=== PATIENT | female | born 1950 | race Caucasian/White ===

== ENCOUNTER 2018-11-21 15:51 | Observation (INO) | payer MEDICARE, OTHER ==
--- NOTE | 2018-11-21 15:58 | PDOC ---
Rapid Medical Evaluation Time Seen by Provider: 11/21/18 15:57 Medical Evaluation: Allergies Allergy/AdvReac Type Severity Reaction Status Date / Time No Known Allergies Allergy Verified 10/01/12 12:55 11/21/18 15:57 I have performed a brief in-person evaluation of this patient. The patient presents with a chief complaint of: CP/SOB/palpitations today. H/o HTN, s/p stress test 1018 that was negative per pt. No recent travel Pertinent physical exam findings: Jennifer uncomfortable at triage and mildly tachy, c/o chest pain I have ordered the following:ekg, cxr, labs The patient will proceed to the ED for further evaluation. Discharge Disposition - Diagnosis Chest pain Qualifiers: Chest pain type: unspecified Qualified Code(s): R07.9 - Chest pain, unspecified - Referrals Referrals: Muriel Bee MD [Primary Care Provider] - - Patient Instructions - Post Discharge Activity
--- NOTE | 2018-11-21 16:14 | PDOC ---
History of Present Illness - General Chief Complaint: Chest Pain Stated Complaint: CHEST PAIN Time Seen by Provider: 11/21/18 15:57 History Source: Patient, Family - History of Present Illness Initial Comments: 11/21/18 16:32 Pt is a 68yo F with PMH of HTN presenting to ED with complaints of chest pain that started at 1.5 hours ago. Pt said she was sitting down when she broke out into a sweat and developed substernal chest pain that radiated to the back. She also endorses SOB and palpitations. She checked her bp at home and stated it was 196/102. Denies lightheadedness, syncope, cough, pain with inspiration, swelling/pain in the legs, recent travel, recent surgeries, history of blood clots, n/v/d, fevers, chills, headache, trauma. She went to her PMD last week and states her tests were "good." PMD: Karis PMH: see hpi PSH: cholecystectomy, c section Meds: atenolol Allergies: nkda Social: denies Past History - Past Medical History Allergies/Adverse Reactions: Allergies Allergy/AdvReac Type Severity Reaction Status Date / Time No Known Allergies Allergy Verified 11/21/18 16:00 Home Medications: Ambulatory Orders Atenolol [Tenormin -] 50 mg PO DAILY 10/01/12 COPD: No HTN: Yes - Surgical History Cholecystectomy: Yes - Suicide/Smoking/Psychosocial Hx Smoking Status: No Smoking History: Never smoked Have you smoked in the past 12 months: No Number of Cigarettes Smoked Daily: 0 Hx Alcohol Use: No Drug/Substance Use Hx: No Substance Use Type: None Hx Substance Use Treatment: No Review of Systems - Review of Systems Constitutional: No: Chills, Fever, Night Sweats HEENTM: No: Symptoms Reported Respiratory: Yes: Shortness of Breath. No: Cough, Orthopnea, SOB with Exertion , SOB at Rest, Hemoptysis Cardiac (ROS): Yes: Chest Pain, Palpitations, Chest Tightness. No: Lightheadedness, Syncope ABD/GI: No: Constipated, Diarrhea, Nausea, Vomiting, Abdominal cramping : No: Symptoms Reported Musculoskeletal: Yes: Back Pain. No: Muscle Pain, Neck Pain Integumentary: No: Symptoms Reported Neurological: No: Headache, Numbness, Tingling *Physical Exam - Vital Signs Last Vital Signs Temp Pulse Resp BP Pulse Ox 103 H 20 145/71 100 11/21/18 15:58 11/21/18 15:58 11/21/18 15:58 11/21/18 15:58 - Physical Exam General Appearance: Yes: Nourished, Appropriately Dressed. No: Apparent Distress HEENT: positive: EOMI, ROYER, Normal ENT Inspection Neck: positive: Trachea midline, Supple. negative: Lymphadenopathy (R), Lymphadenopathy (L) Respiratory/Chest: positive: Lungs Clear, Normal Breath Sounds. negative: Crackles, Rales, Rhonchi, Stridor Cardiovascular: positive: Regular Rhythm, Regular Rate, S1, S2. negative: Edema , JVD Vascular Pulses: Carotid (R): 2+, Carotid (L): 2+, Dorsalis-Pedis (R): 2+, Doralis-Pedis (L): 2+ Gastrointestinal/Abdominal: positive: Normal Bowel Sounds, Soft. negative: Pulsatile Mass, Distended, Guarding, Rebound, Tenderness Musculoskeletal: negative: CVA Tenderness Extremity: positive: Normal Capillary Refill. negative: Coldness, Cyanosis, Pedal Edema, Swelling, Calf Tenderness Integumentary: positive: Normal Color, Dry, Warm Neurologic: positive: territory representative II-XII NML intact, Fully Oriented, Alert, Normal Mood/ Affect, Normal Response, Motor Strength 5/5 Moderate Sedation - Procedure Monitoring Vital Signs: Procedure Monitoring Vital Signs Temperature Pulse Rate 103 H 11/21/18 15:58 Respiratory Rate 20 11/21/18 15:58 Blood Pressure 145/71 11/21/18 15:58 O2 Sat by Pulse Oximetry (%) 100 11/21/18 15:58 Heart Score/ECG Review - History History: Highly suspicious - Electrocardiogram EKG: Non specific repolarization disturbance - Age Age: >/= 65 - Risk Factors Risk Factors Heart Score: Yes Hx Hypertension Based on the list above the patient has:: 1-2 risk factors - Troponin Troponin: 1-3x normal limit - Score Heart Score - Total: 7 - Waterman Waterman: Normal ED Treatment Course - LABORATORY CBC & Chemistry Diagram: 11/21/18 16:30 11/21/18 16:30 Medical Decision Making - Medical Decision Making 11/21/18 16:35 Pt is a 68yo F with PMH of HTN presenting to ED with complaints of chest pain that started at 1.5 hours ago. Pt said she was sitting down when she broke out into a sweat and developed substernal chest pain that radiated to the back. She also endorses SOB and palpitations. She checked her bp at home and stated it was 196/102. Denies lightheadedness, syncope, cough, pain with inspiration, swelling/pain in the legs, recent travel, recent surgeries, history of blood clots, n/v/d, fevers, chills, headache, trauma. She went to her PMD last week and states her tests were "good." Vitals: HR 103, normotensive, saturating well on RA Ddx includes but not limited to IA, PE, Dissection, PNA, Ptx, CHF, MSK, electrolyte abnormality, pancreatitis -EKG, CXR -CBC, CMP, Cardiac profile, D-dimer -ASA 325 -POCUS 11/21/18 17:45 Pt reports some relief of chest pain after ASA. Will give SL nitro for pain relief. Labs significant for Trop 0.09 and K 3.0. D-dimer negative. Giving 40mEq KCl initial EKG shows sinus tachycardia at 102. No EDI or depressions, no T wave inversion. biatrial enlargement CXR: compared to prior 6 hours ago, no signs of congestion or focal consolidations Will admit for NSTEMI. -Per hospitalist team, adding on Mg and P levels. 11/21/18 17:58 -Per Cadiologist Dr. Guthrie covering for Dr. Zhong, Pt does not need anticoagulation or heparin at this time. Will trend troponin. *DC/Admit/Observation/Transfer Diagnosis at time of Disposition: NSTEMI (non-ST elevated myocardial infarction) Chest pain Qualifiers: Chest pain type: unspecified Qualified Code(s): R07.9 - Chest pain, unspecified - Discharge Dispostion Condition at time of disposition: Good Decision to Admit order: Yes - Referrals - Patient Instructions - Post Discharge Activity
--- NOTE | 2018-11-21 16:22 | PDOC ---
Attending Attestation - Medical Decision Making 11/21/18 17:[address] Zhong, litigation examiner jack strip assembler's office, call returned from Dr. Guthrie (covering jack strip assembler); case discussed with resident Dr. Britney Mora. <Shannon Headley - Last Filed: 11/21/18 17:51> - Resident Resident Name: Britney Mora - ED Attending Attestation I have performed the following: I have examined & evaluated the patient, The case was reviewed & discussed with the resident, I agree w/resident's findings & plan - HPI HPI: 11/21/18 16:27 68 YOF with h/o HTN presenting with acute onset of nonradiating substernal chest pain, a/w palpitations, SOB and back pain. PSH: C section, cholecystectomy PMD: Dr Gaona 11/21/18 17:58 - Physicial Exam PE: 11/21/18 17:38 NAD, well appearing, PERRL, EOMI, MMM, nl conjunctiva, anicteric; neck supple. lungs clear, RRR, abdomen soft nontender. RUSSELL x4, no focal neuro deficits. No peripheral edema. normal color for ethnicity, WWP. no calf tenderness. - Medical Decision Making 11/21/18 17:16 DDx chest pain: ACS, coronary vasospasm, NSTEMI, arrhythmia, unstable angina, PE , dissection, PUD, esophageal spasm, GERD, gastritis, costochondritis, pneumonia , pleurisy, pericarditis/myocarditis. dehydration, electrolyte/metabolic derangements. See HPI for details Vital signs reviewed, +mild tachycardia, HD appropriate Prior notes reviewed, including admissions, discharges and consultations. laboratory results and imaging reviewed, basic labs and lytes notable for Positive troponin to 0.09, will trend, non ischemic sinus EKG neg Dimer, so less likely PE/dissection potassium mildly low, repleted CXR_unremarkable EKG normal sinus rhythm, no interval abnormalities, narrow QRS, ST and T wave segments and morphology normal. ED course: ASA 325mg x1, +chest pain 7/10. trop elevated. pain control with nitro PRN bedside echo reassuring, with normal EF on gross visualization, no pericardial effusion, RV<LV, normal aortic root <4cm at sinus of valsalva cards cs to Dr Zhong group, hold heparin for now, trend trops admit for NSTEMI, tele monitoring, r/o ACS and serial trop/ekg, due for repeat stress test, full echo, cards cs. 11/21/18 18:10 11/21/18 18:11 <Radha Mendoza - Last Filed: 11/21/18 18:12> Heart Score/ECG Review - ECG Impressions Normal ECG: Yes Comment:: 11/21/18 17:45 EKG normal sinus rhythm, no interval abnormalities, narrow QRS, ST and T wave segments and morphology normal. <Radha Mendoza - Last Filed: 11/21/18 18:12> Procedures - Bedside Ultrasound Bedside Ultrasound: Cardiac Remarks: 11/21/18 17:37 POCUS echo performed, indication includes chest pain/dyspnea. views obtained ( PSLA, PSS, A4, SX). Findings include normal EF on visual estimation, no pericardial effusion. Normal aortic root <4cm. RV<LV. Impression: no acute findings <Radha Mendoza - Last Filed: 11/21/18 18:12> Attestations - Attestations 11/21/18 17:53 Documentation prepared by Shannon Headley, acting as certified medical coder for Radha Mendoza MD. <Shannon Headley - Last Filed: 11/21/18 17:51>
[2018-11-21] MEDS ORDERED: ASPIRIN 81 MG CHEWABLE TABLETS PO ONE (16:23)
[2018-11-21] MEDS ORDERED: ASPIRIN 325 MG TABLET ONE (16:38)
[2018-11-21 16:40] LABS: BASO % 0.7 % (0-2.0); EOS % 1.2 % (0-4.5); HEMOGLOBIN 12.9 GM/dL (10.7-15.3); LYMPH % 41.1 % (8-40); MCH 29.8 pg (25.7-33.7); MCHC 34.1 g/dl (32.0-36.0); MEAN CELL VOLUME 87.5 fl (80-96); MEAN PLT VOLUME 11.7 fl (7.5-11.1); MONO % 7.8 % (3.8-10.2); NEUT % 49.2 % (42.8-82.8); PLATELET COUNT 145 K/MM3 (134-434); RBC 4.34 M/mm3 (3.60-5.2); RDW 14.3 % (11.6-15.6); WHITE BLOOD COUNT 6.7 K/mm3 (4.0-10.0)
[2018-11-21 16:59] LABS: INR 1.06 (0.83-1.09); PROTHROMBIN TIME (PATIENT) 12.5 SEC (9.7-13.0)
[2018-11-21 17:02] LABS: ACTIVATED PTT 29.6 SECONDS (25.2-36.5)
[2018-11-21 17:21] LABS: ALK PHOS 72 U/L (45-117); ANION GAP 13 MMOL/L (8-16); BILIRUBIN,TOTAL 0.2 mg/dL (0.2-1); BLOOD UREA NITROGEN 17 mg/dL (7-18); CALCIUM 9.2 mg/dL (8.5-10.1); CHLORIDE 100 mmol/L (98-107); CO2 25 mmol/L (21-32); CREATININE 0.8 mg/dL (0.55-1.3); GLUCOSE,RANDOM 86 mg/dL (74-106); SGOT/AST 22 U/L (15-37); SGPT/ALT 40 U/L (13-61); SODIUM 138 mmol/L (136-145); TOT PROT 7.9 g/dl (6.4-8.2)
[2018-11-21] MEDS ORDERED: POTASSIUM CHLORIDE ORAL LIQUID 20 MEQ/15 ML PO ONE (17:42)
[2018-11-21] MEDS ORDERED: NITROGLYCERIN SUBLINGUAL 1/150 0.4 MG TAB SL ONE (17:45)
[2018-11-21] MEDS ORDERED: NITROGLYCERIN SUBLINGUAL 1/150 0.4 MG TAB ONE (17:51)
[2018-11-21] MEDS ORDERED: POTASSIUM CHLORIDE TABS 20 MEQ TABLET.ER (FP) PO ONE (17:51)
[2018-11-21 18:09] LABS: MAGNESIUM 1.9 mg/dL (1.8-2.4); PHOSPHOROUS 2.6 mg/dL (2.5-4.9)
--- NOTE | 2018-11-21 18:21 | HP ---
CHIEF COMPLAINT: " Chest pain " PCP: Dr. Dyson HISTORY OF PRESENT ILLNESS: Patient is a 68 year old female presented to the ED with the chief complaint of " chest pain" that started 2 hours prior to arrival. As per the patient, she was apparently well until this afternoon, was watching TV, then she suddenly started having chest pain, located centrally, describes as squeezing in nature, 3/10 in intensity, non radiating, associated with shortness of breath and palpitations. She felt very weak, tired, checked her BP and it was 196/102 mmHg. Hence came in to the ED for further evaluation and treatment. Denies dizziness, vertigo, headache, abdominal pain. Bowel habit normal. Last BM was today. Bladder habit normal. Sleep/Appetite normal prior to her symptoms. ER course was notable for: (1) Afebrile, BP 140/78 mmHg, Troponin 0.09 (2) EKG: Normal sinus rhythm. No ST or T wave changes. (3) Aspirin 325 mg. Recent Travel: None PAST MEDICAL HISTORY: Hypertension, Pre-diabetic PAST SURGICAL HISTORY: Cholecystectomy 20 yrs ago, C-sections. Social History: Smoking: Denies Alcohol: Denies Drugs: Denies Family History: Non contributory Allergies No Known Allergies Allergy (Verified 11/21/18 16:00) HOME MEDICATIONS: Home Medications Medication Instructions Recorded Atenolol [Tenormin -] 50 mg PO DAILY 10/01/12 REVIEW OF SYSTEMS CONSTITUTIONAL: Absent: fever, chills, diaphoresis, generalized weakness, malaise, loss of appetite, weight change HEENT: Absent: rhinorrhea, nasal congestion, throat pain, throat swelling, difficulty swallowing, mouth swelling, ear pain, eye pain, visual changes CARDIOVASCULAR: Present: chest pain, shortness of breath, palpitations Absent: syncope, irregular heart rate, lightheadedness, peripheral edema RESPIRATORY: Absent: cough, shortness of breath, dyspnea with exertion, orthopnea, wheezing, stridor, hemoptysis GASTROINTESTINAL: Absent: abdominal pain, abdominal distension, nausea, vomiting, diarrhea, constipation, melena, hematochezia GENITOURINARY: Absent: dysuria, frequency, urgency, hesitancy, hematuria, flank pain, genital pain MUSCULOSKELETAL: Absent: myalgia, arthralgia, joint swelling, back pain, neck pain SKIN: Absent: rash, itching, pallor HEMATOLOGIC/IMMUNOLOGIC: Absent: easy bleeding, easy bruising, lymphadenopathy, frequent infections ENDOCRINE: Absent: unexplained weight gain, unexplained weight loss, heat intolerance, cold intolerance NEUROLOGIC: Absent: headache, focal weakness or paresthesias, dizziness, unsteady gait, seizure, mental status changes, bladder or bowel incontinence PSYCHIATRIC: Absent: anxiety, depression, suicidal or homicidal ideation, hallucinations. PHYSICAL EXAMINATION Vital Signs - 24 hr 11/21/18 11/21/18 11/21/18 15:58 16:21 17:48 Temperature 98.4 F Pulse Rate 103 H 94 H Pulse Rate [ 72 Left Apical] Respiratory 20 16 Rate Blood Pressure 145/71 Blood Pressure 128/83 [Right Arm] O2 Sat by Pulse 100 98 99 Oximetry (%) 11/21/18 18:09 Temperature Pulse Rate Pulse Rate [ 82 Left Apical] Respiratory 16 Rate Blood Pressure Blood Pressure 112/71 [Right Arm] O2 Sat by Pulse 99 Oximetry (%) GENERAL: Middle aged female, sitting in bed comfortably, Awake, alert, and fully oriented, in no acute distress. EYES: EOM intact, no pallor or icterus. NECK: Supple, No JVD, no carotid bruit. LUNGS:B/L lungs clear, no added sounds. HEART: Regular rate and rhythm, normal S1 and S2 without murmu. ABDOMEN: Soft, nontender, no organomegaly, BS + UPPER EXTREMITIES: 2+ pulses, warm, well-perfused. No cyanosis. No clubbing. No peripheral edema. LOWER EXTREMITIES: 2+ pulses, warm, well-perfused. No calf tenderness. No peripheral edema. NEUROLOGICAL: No facial droop, power 5/5 in all extremities, sensations intact. Normal speech. Normal gait. PSYCHIATRIC: Cooperative. Good eye contact. Appropriate mood and affect. SKIN: Warm, dry, normal turgor, no rashes or lesions noted, normal capillary refill. Laboratory Results - last 24 hr 11/21/18 11/21/18 11/21/18 16:30 16:30 16:30 WBC 6.7 RBC 4.34 Hgb 12.9 Hct 38.0 MCV 87.5 MCH 29.8 MCHC 34.1 RDW 14.3 Plt Count 145 D MPV 11.7 H Absolute Neuts (auto) 3.3 Neutrophils % 49.2 Lymphocytes % 41.1 H Monocytes % 7.8 Eosinophils % 1.2 Basophils % 0.7 Nucleated RBC % 0 PT with INR 12.50 INR 1.06 PTT (Actin FS) 29.6 D-Dimer Sodium 138 Potassium 3.0 L Chloride 100 Carbon Dioxide 25 Anion Gap 13 BUN 17 Creatinine 0.8 Creat Clearance w eGFR > 60 Random Glucose 86 Calcium 9.2 Phosphorus 2.6 Magnesium 1.9 Total Bilirubin 0.2 AST 22 ALT 40 Alkaline Phosphatase 72 Creatine Kinase 83 Troponin I 0.09 H Total Protein 7.9 Albumin 4.0 11/21/18 16:30 WBC RBC Hgb Hct MCV MCH MCHC RDW Plt Count MPV Absolute Neuts (auto) Neutrophils % Lymphocytes % Monocytes % Eosinophils % Basophils % Nucleated RBC % PT with INR INR PTT (Actin FS) D-Dimer 285 Sodium Potassium Chloride Carbon Dioxide Anion Gap BUN Creatinine Creat Clearance w eGFR Random Glucose Calcium Phosphorus Magnesium Total Bilirubin AST ALT Alkaline Phosphatase Creatine Kinase Troponin I Total Protein Albumin ASSESSMENT/PLAN: Patient is a 68 year old female with past medical history of hypertension and prediabetic presented to the ED with the chief complaint of " chest pain" that started 2 hours prior to arrival. # Chest pain r/o ACS c/o chest pain, located centrally, associated with shortness of breath and palpitations. Troponins 0.09, BP at home 190/106 mmHg Chest pain could be a demand ischemia from HTN. EKG: Normal sinus rhythm, no ST or T wave changes Received Aspirin 325 mg in the ED. Admit to Tele/observation. Continuous cardiac monitoring. Trend troponins. Trop 0.09 --> trops at 10:30 pm. Continue aspirin 81 mg. Cardiology consult requested. As per ED resident, Dr. Guthrie recommends trending trops, if it is rising, then start the patient on Heparin drip Serial EKGs ECHO, Lipid profile and HbA1c. # Hypokalemia K-3, Mg and phos pending K-dur 40 mg PO and IV KCL 10 mg x 2. Repeat K in AM # Hypertension At home, her BP was 190/106 mmHg before arrival to the ED, however it normalized without any medication. Continue to monitor. Continue Atenolol 50 mg PO daily # FEN Not on IV fluids Electrolytes WNL Sodium controlled diet # Prophylaxis For DVT: On Heparin 5000 IU sq TID For GI: Not indicated # Code Status: Full Code # Dispo: Admit to tele/Obs. Duration of stay likely 1-2 days. Illness, Investigation and plan of care explained to the patient. She verbalized understanding. Case discussed with Dr. Paul.
[2018-11-21] MEDS ORDERED: KCL 10 MEQ IVPB 20 MEQ/200 ML INFUS.BAG IVPB ONE (18:46)
[2018-11-21] MEDS: KCL 10 MEQ IVPB 10 MEQ/100 ML INFUS.BAG IVPB SCH ×2 (18:56→22:24)
[2018-11-21] MEDS ORDERED: HEPARIN NA (PORCINE) 5,000 UNITS/ML 1ML VIAL SQ SCH (22:00)
--- NOTE | 2018-11-21 23:05 | PN ---
Teaching Attending Note Name of Resident: Jo-Ann Mosher ATTENDING PHYSICIAN STATEMENT I saw and evaluated the patient. I reviewed the resident's note and discussed the case with the resident. I agree with the resident's findings and plan as documented. SUBJECTIVE: OBJECTIVE: ASSESSMENT AND PLAN: this is a 68 y/o female patient presented to the hospital with chest pain, the patient stated that the pain is retrosternal in nature the patent stated that she is having pain at this time - she denied that the pain with inspiration, denied any palpitations, SOB, admit to the hospital to r/o ACS patient was found to have elevated troponin cardiology plan load the patient with aspirin repeat troponin q6hrs repeat ECG q6 hrs c/w home medication f/u with cardiology start the patient on heparin drip if the troponin are rising will load patient with clopidogrel 300mg if the troponin are rising if the patient keeps on having chest pain will consider transferring patient for UA nitroglyerine prn c/w beta-blockers c/w heparin sub-q echocardiogram stress test if the troponin trending down
[2018-11-21 23:31] VITALS: BMI 26.6
--- NOTE | 2018-11-22 03:11 | PN ---
Progress Note (short form) - Note Progress Note: Patient is comfortable with no further chest pain. No nausea or vomiting. Vital Signs Temperature 98.3 F 11/22/18 01:21 Pulse Rate 64 11/22/18 01:21 Respiratory Rate 18 11/22/18 01:21 Blood Pressure 133/71 11/22/18 01:21 O2 Sat by Pulse Oximetry (%) 99 11/21/18 21:45 GENERAL: lying in bed comfortably, Awake, alert, and fully oriented, in no acute distress. EYES: EOM intact, no pallor or icterus. NECK: Supple, No JVD, no carotid bruit. LUNGS:B/L lungs clear, no added sounds. HEART: Regular rate and rhythm, normal S1 and S2 without murmu. ABDOMEN: Soft, nontender, no organomegaly, positive for BS EXTREMITIES: 2+ pulses, warm, well-perfused. No cyanosis. No clubbing. No peripheral edema. NEUROLOGICAL: No facial droop, power 5/5 in all extremities, sensations intact. Normal speech. Normal gait. PSYCHIATRIC: Cooperative. Good eye contact. Appropriate mood and affect. SKIN: Warm, dry, normal turgor, no rashes or lesions noted, normal capillary refill. CBCD WBC 6.7 K/mm3 (4.0-10.0) 11/21/18 16:30 RBC 4.34 M/mm3 (3.60-5.2) 11/21/18 16:30 Hgb 12.9 GM/dL (10.7-15.3) 11/21/18 16:30 Hct 38.0 % (32.4-45.2) 11/21/18 16:30 MCV 87.5 fl (80-96) 11/21/18 16:30 MCHC 34.1 g/dl (32.0-36.0) 11/21/18 16:30 RDW 14.3 % (11.6-15.6) 11/21/18 16:30 Plt Count 145 K/MM3 (134-434) D 11/21/18 16:30 MPV 11.7 fl (7.5-11.1) H 11/21/18 16:30 CMP Sodium 138 mmol/L (136-145) 11/21/18 16:30 Potassium 3.0 mmol/L (3.5-5.1) L 11/21/18 16:30 Chloride 100 mmol/L (98-107) 11/21/18 16:30 Carbon Dioxide 25 mmol/L (21-32) 11/21/18 16:30 Anion Gap 13 MMOL/L (8-16) 11/21/18 16:30 BUN 17 mg/dL (7-18) 11/21/18 16:30 Creatinine 0.8 mg/dL (0.55-1.3) 11/21/18 16:30 Creat Clearance w eGFR > 60 (>60) 11/21/18 16:30 Random Glucose 86 mg/dL (74-106) 11/21/18 16:30 Calcium 9.2 mg/dL (8.5-10.1) 11/21/18 16:30 Total Bilirubin 0.2 mg/dL (0.2-1) 11/21/18 16:30 AST 22 U/L (15-37) 11/21/18 16:30 ALT 40 U/L (13-61) 11/21/18 16:30 Alkaline Phosphatase 72 U/L (45-117) 11/21/18 16:30 Total Protein 7.9 g/dl (6.4-8.2) 11/21/18 16:30 Albumin 4.0 g/dl (3.4-5.0) 11/21/18 16:30 CARDIAC ENZYMES Creatine Kinase 78 IU/L (26-192) 11/21/18 22:55 Troponin I 0.43 ng/ml (0.00-0.05) H 11/21/18 22:55 Laboratory Tests 11/21/18 11/21/18 16:30 22:55 Troponin I 0.09 H 0.43 H Current Medications Generic Name Dose Route Start Last Admin Trade Name Freq PRN Reason Stop Dose Admin Aspirin 81 mg 11/22/18 10:00 Ecotrin - PO DAILY [facility] Atenolol 50 mg 11/22/18 10:00 Tenormin - PO DAILY [facility] Heparin Sodium (Porcine) 5,000 unit 11/21/18 22:00 11/21/18 22:25 Heparin - SQ 5,000 unit TID [facility] Administration Home Medications Medication Instructions Recorded Atenolol [Tenormin -] 50 mg PO DAILY 10/01/12 Laboratory Tests 11/21/18 11/21/18 16:30 22:55 Troponin I 0.09 H 0.43 H EKG: Normal sinus rhythm, no ST or T wave changes A/P: Patient is a 68 year old female with PMHx of hypertension , pre-diabetic presented to the ED c/o having chest pain started 2 hours prior to arrival. # Acute chest pain r/o ACS , possible due to demand ischemia from HTN. Dr. Guthrie hand sander on the case. Patient's troponin slight elevation, Serial EKGs, ECHO pending. Lipid profile and HbA1c ,on asa 81mg, will add lovenox 70mg bid since Troponin is rising. # Hypokalemia : will monitor and replete prn, k-dur 40 mg PO and IV KCL 10 mg x 2. repeat potassium. # Hypertension improved. continue Atenolol 50 mg PO daily DVT Px: lovenox full dose Code Status: Full Code Dispo: Admit to tele/Obs. Duration of stay likely 1-2 days. Visit type - Emergency Visit Emergency Visit: Yes ED Registration Date: 11/21/18 Care time: The patient presented to the Emergency Department on the above date and was hospitalized for further evaluation of their emergent condition. - New Patient This patient is new to me today: Yes Date on this admission: 11/22/18 - Critical Care Critical Care patient: No - Discharge Referral Referred to [facility] No
[2018-11-22] MEDS ORDERED: ENOXAPARIN NA (PORCINE) 80 MG/0.8 ML DISP.SYRIN SQ SCH (05:00)
[2018-11-22 07:58] LABS: BASO % 0.5 % (0-2.0); EOS % 1.4 % (0-4.5); HEMATOCRIT 37.4 % (32.4-45.2); HEMOGLOBIN 12.6 GM/dL (10.7-15.3); LYMPH % 50.3 % (8-40); MCH 29.4 pg (25.7-33.7); MCHC 33.6 g/dl (32.0-36.0); MEAN CELL VOLUME 87.6 fl (80-96); MEAN PLT VOLUME 12.5 fl (7.5-11.1); MONO % 8.8 % (3.8-10.2); PLATELET COUNT 133 K/MM3 (134-434); RBC 4.27 M/mm3 (3.60-5.2); RDW 14.3 % (11.6-15.6); WHITE BLOOD COUNT 5.1 K/mm3 (4.0-10.0)
[2018-11-22 08:36] LABS: ANION GAP 7 MMOL/L (8-16); BLOOD UREA NITROGEN 12 mg/dL (7-18); CALCIUM 9.7 mg/dL (8.5-10.1); CHLORIDE 101 mmol/L (98-107); CHOLESTEROL 165 mg/dL (50-200); CO2 29 mmol/L (21-32); CREATININE 0.6 mg/dL (0.55-1.3); GLUCOSE,RANDOM 85 mg/dL (74-106); HDL CHOLESTEROL 64 mg/dL (40-60); POTASSIUM 3.9 mmol/L (3.5-5.1); SODIUM 137 mmol/L (136-145); TRIGLYCERIDES 51 mg/dL (0-150)
--- NOTE | 2018-11-22 10:27 | CON.CARD ---
Consult Consult Specialty:: Cardiology Referred by:: Humberto Reason for Consultation:: chest pain - History of Present Illness Chief Complaint: chest pain History of Present Illness: 68F h/o HTN, prediabetes p/w chest pain for two hours prior to arriving to ED. She felt well during the day, afternoon rpior to admission suddenly had chest pain while watching TV, 3/10 intensity, nonradiating, associated with shortness of breath and palpitations. BP 192/102 per patient when checking at home at the time, she came to the ED for evaluation. BP here was controlled. Had CP again in the afternoon yesterday. Today she felt a minor chest burning,she has been feeling this the last few months. Received asiprin 325 mg, EKG stable from prior. Trop 0.09->0.4->0.13. She was started on lovenox. Currently she denies chest pain, palps, dizziness, lightheadedness, nausea. - History Source History Provided By: Patient - Alcohol/Substance Use Hx Alcohol Use: No - Smoking History Smoking history: Never smoked Have you smoked in the past 12 months: No Aproximately how many cigarettes per day: 0 Home Medications - Allergies Allergies/Adverse Reactions: Allergies Allergy/AdvReac Type Severity Reaction Status Date / Time No Known Allergies Allergy Verified 11/21/18 16:00 - Home Medications Home Medications: Ambulatory Orders Atenolol [Tenormin -] 50 mg PO DAILY 10/01/12 Family Disease History - Family Disease History Family History: Unremarkable Review of Systems - Review of Systems Constitutional: reports: No Symptoms Eyes: reports: No Symptoms HENT: reports: No Symptoms Neck: reports: No Symptoms Cardiovascular: reports: No Symptoms Respiratory: reports: No Symptoms Gastrointestinal: reports: No Symptoms Genitourinary: reports: No Symptoms Musculoskeletal: reports: No Symptoms Integumentary: reports: No Symptoms Neurological: reports: No Symptoms Endocrine: reports: No Symptoms Hematology/Lymphatic: reports: No Symptoms Psychiatric: reports: No Symptoms Vital Signs: Vital Signs Temperature 98 F 11/22/18 05:00 Pulse Rate 71 11/22/18 09:00 Respiratory Rate 18 11/22/18 09:00 Blood Pressure 122/69 11/22/18 09:00 O2 Sat by Pulse Oximetry (%) 99 11/22/18 03:00 Constitutional: Yes: No Distress, Calm Eyes: Yes: Conjunctiva Clear, EOM Intact HENT: Yes: Atraumatic, Normocephalic Neck: Yes: Supple, Trachea Midline Respiratory: Yes: Regular, CTA Bilaterally Gastrointestinal: Yes: Normal Bowel Sounds Cardiovascular: Yes: Regular Rate and Rhythm JVD: No Carotid Bruit: No Heart Sounds: Yes: S1, S2 Musculoskeletal: No: Back Pain Extremities: No: Cold Edema: No Peripheral Pulses WNL: Yes Peripheral Pulses: 2+ Left Doralis Pedis, 2+ Right Dorsalis Pedis Neurological: Yes: Alert, Oriented Psychiatric: Yes: Alert, Oriented - Other Data Labs, Other Data: CBC, BMP 11/22/18 06:38 11/22/18 06:38 INR, PTT INR 1.06 (0.83-1.09) 11/21/18 16:30 Troponin, BNP 11/21/18 11/21/18 11/22/18 16:30 22:55 06:38 Troponin I 0.09 H 0.43 H 0.13 H Troponin, BNP 11/21/18 11/21/18 11/22/18 16:30 22:55 06:38 Troponin I 0.09 H 0.43 H 0.13 H Assessment/Plan EKG: sinus, nl intervals, no ST changes CXR: no acute process chest pain, elevated troponin - flat trend, indeterminate range, likely demand ischemia in setting of elevated BP - lovenox dc'ed, less likely ACS - echo ordered - stress test to evaluate for underlying ischemia - monitor on tele HTN - stable here on atenolol, reports high BPs at home and recent trial of amlodipine with leg swelling - continue atenolol, monitor Prediabetes - manage per primary
[2018-11-22] MEDS: ATENOLOL 50 MG TABLET (FP) PO SCH (11:55)
[2018-11-22] MEDS: ASPIRIN COATED 81 MG TABLET.EC PO SCH (11:55)
[2018-11-23] MEDS: ATENOLOL 50 MG TABLET (FP) PO SCH (09:57)
[2018-11-23] MEDS: ASPIRIN COATED 81 MG TABLET.EC PO SCH (09:57)
--- NOTE | 2018-11-23 11:02 | PN ---
Progress Note (short form) - Note Progress Note: cc: chest pain s: occasional chest burning lasting a few minutes, had an episode this morning few seconds and a couple yesterday, different from chest pain she had when bp elevated.no shortness of breath, palps, dizziness, lightheadedness Vital Signs Period Temp Pulse Resp BP Sys/Chew Pulse Ox Last 24 Hr 97.3 F-98.2 F 63-72 17-18 115-127/71-76 100-100 Constitutional: Yes: No Distress, Calm Eyes: Yes: Conjunctiva Clear, EOM Intact HENT: Yes: Atraumatic, Normocephalic Neck: Yes: Supple, Trachea Midline Respiratory: Yes: Regular, CTA Bilaterally Gastrointestinal: Yes: Normal Bowel Sounds Cardiovascular: Yes: Regular Rate and Rhythm JVD: No Carotid Bruit: No Heart Sounds: Yes: S1, S2 Musculoskeletal: No: Back Pain Extremities: No: Cold Edema: No Peripheral Pulses WNL: Yes Peripheral Pulses: 2+ Left Doralis Pedis, 2+ Right Dorsalis Pedis Neurological: Yes: Alert, Oriented Psychiatric: Yes: Alert, Oriented Assessment/Plan EKG: sinus, nl intervals, no ST changes CXR: no acute process tele: sinus rhythm chest pain, elevated troponin - flat trend, indeterminate range, likely demand ischemia in setting of elevated BP - occasional chest burning while here, atypical, lasting seconds - echo ordered - stress test to evaluate for underlying ischemia - monitor on tele, no events HTN - stable here on atenolol, reports high BPs at home and recent trial of amlodipine with leg swelling - continue atenolol, monitor Prediabetes - manage per primary
--- NOTE | 2018-11-23 15:32 | PN ---
Progress Note, Physician History of Present Illness: chest pain - Current Medication List Current Medications: Active Medications Aspirin (Ecotrin -) 81 mg PO DAILY [facility] Last Admin: 11/23/18 09:57 Dose: 81 mg Atenolol (Tenormin -) 50 mg PO DAILY [facility] Last Admin: 11/23/18 09:57 Dose: 50 mg - Objective Vital Signs: Vital Signs Temperature 98.1 F 11/23/18 14:06 Pulse Rate 62 11/23/18 14:06 Respiratory Rate 18 11/23/18 06:00 Blood Pressure 126/79 11/23/18 14:06 O2 Sat by Pulse Oximetry (%) 100 11/23/18 05:00 Constitutional: Yes: Well Nourished, No Distress, Calm Eyes: Yes: WNL, Conjunctiva Clear, EOM Intact HENT: Yes: WNL, Atraumatic, Normocephalic Neck: Yes: WNL, Supple, Trachea Midline Cardiovascular: Yes: WNL, Regular Rate and Rhythm, S1, S2 Respiratory: Yes: WNL, Regular, CTA Bilaterally Gastrointestinal: Yes: WNL, Normal Bowel Sounds, Soft Musculoskeletal: Yes: WNL Extremities: Yes: WNL Edema: No Integumentary: Yes: WNL Neurological: Yes: WNL, Alert, Oriented ...Motor Strength: WNL Psychiatric: Yes: WNL, Alert, Oriented Labs: CBC, BMP 11/22/18 06:38 11/22/18 06:38 INR, PTT INR 1.06 (0.83-1.09) 11/21/18 16:30 Problem List - Problems (1) NSTEMI (non-ST elevated myocardial infarction) Code(s): I21.4 - NON-ST ELEVATION (NSTEMI) MYOCARDIAL INFARCTION (2) HTN (hypertension), benign Code(s): I10 - ESSENTIAL (PRIMARY) HYPERTENSION Assessment/Plan this is a 68 y/o female patient presented to the hospital with chest pain, the patient stated that the pain is retrosternal in nature the patent stated that she is having pain at this time - she denied that the pain with inspiration, denied any palpitations, SOB, admit to the hospital to r/o ACS patient was found to have elevated troponin cardiology plan load the patient with aspirin troponin are trending down repeat ECG only if active chest pain repeat troponin with active chest pain c/w home medication alexandra nuclear stress test if the patient keeps on having chest pain will consider transferring patient for UA nitroglyerine prn c/w beta-blockers c/w heparin sub-q f/u with echocardiogram stress test if the troponin trending down
--- NOTE | 2018-11-23 19:10 | EKG ---
Test Reason : Blood Pressure : / mmHG Vent. Rate : 067 BPM Atrial Rate : 067 BPM P-R Int : 222 ms QRS Dur : 092 ms QT Int : 384 ms P-R-T Axes : 064 024 024 degrees QTc Int : 405 ms SINUS RHYTHM WITH 1ST DEGREE A-V BLOCK OTHERWISE NORMAL ECG WHEN COMPARED WITH ECG OF 21-NOV-2018 23:00, NO SIGNIFICANT CHANGE WAS FOUND Confirmed by REBECCA ALEXANDER, MARYSOL ([id number]) on 11/23/2018 7:09:40 PM Referred By: Lindsay ANAYA Confirmed By:MARYSOL FERNANDEZ MD
--- NOTE | 2018-11-23 19:12 | EKG ---
Test Reason : Blood Pressure : / mmHG Vent. Rate : 063 BPM Atrial Rate : 063 BPM P-R Int : 208 ms QRS Dur : 092 ms QT Int : 392 ms P-R-T Axes : 050 018 029 degrees QTc Int : 401 ms NORMAL SINUS RHYTHM NORMAL ECG WHEN COMPARED WITH ECG OF 21-NOV-2018 17:20, NO SIGNIFICANT CHANGE WAS FOUND Confirmed by MARYSOL FERNANDEZ MD ([id number]) on 11/23/2018 7:12:29 PM Referred By: Confirmed By:MARYSOL FERNANDEZ MD
--- NOTE | 2018-11-23 19:33 | EKG ---
Test Reason : Blood Pressure : / mmHG Vent. Rate : 075 BPM Atrial Rate : 075 BPM P-R Int : 180 ms QRS Dur : 092 ms QT Int : 388 ms P-R-T Axes : 058 005 021 degrees QTc Int : 433 ms NORMAL SINUS RHYTHM POSSIBLE LEFT ATRIAL ENLARGEMENT LEFT VENTRICULAR HYPERTROPHY ABNORMAL ECG WHEN COMPARED WITH ECG OF 21-NOV-2018 15:55, NO SIGNIFICANT CHANGE WAS FOUND Confirmed by MARYSOL FERNANDEZ MD ([id number]) on 11/23/2018 7:32:47 PM Referred By: Confirmed By:MARYSOL FERNANDEZ MD
--- NOTE | 2018-11-23 19:34 | EKG ---
Test Reason : Blood Pressure : / mmHG Vent. Rate : 102 BPM Atrial Rate : 102 BPM P-R Int : 176 ms QRS Dur : 092 ms QT Int : 368 ms P-R-T Axes : 070 041 055 degrees QTc Int : 479 ms SINUS TACHYCARDIA BIATRIAL ENLARGEMENT ABNORMAL ECG WHEN COMPARED WITH ECG OF 02-OCT-2012 14:05, T WAVE VARIATION VENT. RATE HAS INCREASED Confirmed by MARYSOL FERNANDEZ MD ([id number]) on 11/23/2018 7:33:47 PM Referred By: Confirmed By:MARYSOL FERNANDEZ MD
--- NOTE | 2018-11-24 08:28 | PN ---
Progress Note, Physician Chief Complaint: Patient denies any chest pain or SOB, schedule for stress test History of Present Illness: 68 yrs old admitted with chest pain in the setting of elevated BP evaluated by Cardiology, flat elevation of trop I , schedule for stress test. - Current Medication List Current Medications: Active Medications Aspirin (Ecotrin -) 81 mg PO DAILY [facility] Last Admin: 11/23/18 09:57 Dose: 81 mg Atenolol (Tenormin -) 50 mg PO DAILY [facility] Last Admin: 11/23/18 09:57 Dose: 50 mg - Objective Vital Signs: Vital Signs Temperature 98.1 F 11/24/18 06:00 Pulse Rate 70 11/24/18 06:00 Respiratory Rate 18 11/24/18 06:00 Blood Pressure 132/74 11/24/18 06:00 O2 Sat by Pulse Oximetry (%) 100 11/24/18 06:00 Constitutional: Yes: Well Nourished, No Distress Eyes: Yes: WNL, Conjunctiva Clear HENT: Yes: Atraumatic, Normocephalic Neck: Yes: Supple, Trachea Midline. No: Decreased ROM, Lymphadenopathy Cardiovascular: Yes: Regular Rate and Rhythm, S1, S2. No: JVD, Gallop, Murmur Respiratory: Yes: Regular, CTA Bilaterally Gastrointestinal: Yes: Normal Bowel Sounds, Soft Musculoskeletal: No: Back Pain, Joint Stiffness, Joint Swelling Extremities: No: Calf Tenderness Edema: No Peripheral Pulses: Left Doralis Pedis: 1+, Right Dorsalis Pedis: 1+ Neurological: Yes: Alert, Oriented ...Motor Strength: WNL, LUE, LLE, RUE Labs: CBC, BMP 11/22/18 06:38 11/22/18 06:38 INR, PTT INR 1.06 (0.83-1.09) 11/21/18 16:30 Problem List - Problems (1) HTN (hypertension), benign Assessment/Plan: Well controlled cont Atenolol and ASA Code(s): I10 - ESSENTIAL (PRIMARY) HYPERTENSION (2) Elevated troponin Assessment/Plan: Mild flat no acute St T changes, evaluated by Cardiology recommended Stress test cont ASA and B Blockers F/u Lipid panel Code(s): R74.8 - ABNORMAL LEVELS OF OTHER SERUM ENZYMES (3) Chest pain Assessment/Plan: Atypical in the setting of High BP needs evaluation for CAD considering high heart score need inpatient stress test F/U stress test. Code(s): R07.9 - CHEST PAIN, UNSPECIFIED Qualifiers: Chest pain type: unspecified Qualified Code(s): R07.9 - Chest pain, unspecified
[2018-11-24] MEDS: ASPIRIN COATED 81 MG TABLET.EC PO SCH (09:34)
[2018-11-24] MEDS: ATENOLOL 50 MG TABLET (FP) PO SCH (09:35)
--- NOTE | 2018-11-24 13:50 | ECHO ---
Name: SULY LIVE Exam:Adult Echocardiogram Study Date: 11/24/2018 08:40 AM Age: 68 yrs Reason For Study: EF WALL MOTION ABNORMALITIES Height: 64 in Weight: 155 lb BSA: 1.8 m2 MMode/2D Measurements & Calculations IVSd: 0.81 cm Ao root diam: 2.5 cm LVIDd: 4.3 cm LA dimension: 4.0 cm LVIDs: 2.8 cm LVPWd: 0.79 cm EDV(Teich): 84.0 ml ESV(Teich): 28.9 ml Doppler Measurements & Calculations MV E max rebel: 58.7 cm/sec Ao V2 max: 132.6 cm/sec MV A max rebel: 81.4 cm/sec Ao max P.0 mmHg MV E/A: 0.72 Ao V2 mean: 96.7 cm/sec MV dec time: 0.27 sec Ao mean P.1 mmHg Ao V2 VTI: 30.7 cm AI P1/2t: 738.0 msec AI max rebel: 354.1 cm/sec LV V1 max P.3 mmHg AI max P.6 mmHg LV V1 mean P.5 mmHg LV V1 max: 90.6 cm/sec AI dec slope: 140.5 cm/sec2 LV V1 mean: 56.0 cm/sec LV V1 VTI: 19.1 cm MR max rebel: 259.3 cm/sec TR max rebel: 173.7 cm/sec MR max P.9 mmHg TR max P.1 mmHg PA V2 max: 107.7 cm/sec PI end-d rebel: 136.4 cm/sec PA max P.6 mmHg Med Peak E' Rebel: 5.7 cm/sec Med E/e': 10.4 Lat Peak E' Rebel: 4.8 cm/sec Lat E/e': 12.3 Procedure A complete two-dimensional transthoracic echocardiogram was performed (2D, M-mode, Doppler and color flow Doppler). Left Ventricle The left ventricle is normal in size. Left ventricular systolic function is normal. Ejection Fraction = 65- 70%. Grade I diastolic dysfunction, (abnormal relaxation pattern). Ratio E/E'= 10. No regional wall m otion abnormalities noted. Right Ventricle The right ventricle is normal size. The right ventricular systolic function is normal. RV systolic TD I is 11 cm/s. Atria The left atrial size is normal. Right atrial size is normal. Mitral Valve The mitral valve is normal in structure and function. There is trace to mild mitral regurgitation. Tricuspid Valve The tricuspid valve is normal in structure and function. There is mild tricuspid regurgitation. Right ventricular systolic pressure is normal. Aortic Valve The aortic valve is normal in structure and function. Mild to moderate aortic regurgitation. Pulmonic Valve The pulmonic valve is not well visualized. Mild pulmonic valvular regurgitation. Great Vessels The aortic root is normal size. Pericardium/Pleura There is no pericardial effusion. Interpretation Summary The left ventricle is normal in size. Left ventricular systolic function is normal. No regional wall motion abnormalities noted. Ejection Fraction = 65-70%. Grade I diastolic dysfunction, (abnormal relaxation pattern). Ratio E/E'= 10 c/w normal filling pressure The right ventricular systolic function is normal. The left atrial size is normal. Right atrial size is normal. There is trace to mild mitral regurgitation. There is mild tricuspid regurgitation. Right ventricular systolic pressure is normal. Mild to moderate aortic regurgitation. Mild pulmonic valvular regurgitation. There is no pericardial effusion. Previous study is not available for comparison Ben Greenberg MD 11/24/2018 01:49 PM
[2018-11-24 15:25] VITALS: BP 127/69; PULSE 74; TEMP 98.2
--- NOTE | 2018-11-24 18:02 | DS ---
Physical Examination Vital Signs: Vital Signs Temperature 98.2 F 11/24/18 14:10 Pulse Rate 74 11/24/18 14:10 Respiratory Rate 18 11/24/18 14:10 Blood Pressure 127/69 11/24/18 14:10 O2 Sat by Pulse Oximetry (%) 100 11/24/18 11:28 Constitutional: Yes: Well Nourished, No Distress Eyes: Yes: WNL, Conjunctiva Clear HENT: Yes: Atraumatic, Normocephalic Neck: Yes: Supple, Trachea Midline. No: Decreased ROM, Lymphadenopathy Cardiovascular: Yes: Regular Rate and Rhythm, S1, S2. No: JVD, Gallop, Murmur Respiratory: Yes: Regular, CTA Bilaterally Gastrointestinal: Yes: Normal Bowel Sounds, Soft Musculoskeletal: No: Back Pain, Joint Stiffness, Joint Swelling Extremities: No: Calf Tenderness Edema: No Peripheral Pulses: Left Doralis Pedis: 1+, Right Dorsalis Pedis: 1+ Neurological: Yes: Alert, Oriented Motor Strength: WNL, LUE, LLE, RUE Labs: CBC, BMP 11/22/18 06:38 11/22/18 06:38 Discharge Summary Reason For Visit: CHEST PAIN Current Active Problems Chest pain (Acute) Elevated troponin (Acute) HTN (hypertension), benign (Acute) NSTEMI (non-ST elevated myocardial infarction) (Acute) Hospital Course: 68 yrs old admitted with chest pain in the setting of elevated BP evaluated by Cardiology, flat elevation of trop I , schedule for stress test. Condition: Good - Instructions Diet, Activity, Other Instructions: Low sat low cholesterol Referrals: Jesica Guthrie MD [Staff Physician] - 1 Month Muriel Bee MD [Primary Care Provider] - 1 Week - Home Medications Comprehensive Discharge Medication List: Ambulatory Orders Atenolol [Tenormin -] 50 mg PO DAILY 10/01/12 Aspirin Coated [Ecotrin -] 81 mg PO DAILY #30 tablet.ec 11/24/18
== END 2018-11-24 18:19 | disposition home or self-care (01) ==
LOC: JER 15:51 → UNDOADMOB 17:22 → JERBED 17:22 → INTOOBSV 17:22 → JERBED 18:52 → J4W 21:34 → UNDODISOB 11-24 18:19
PROVIDERS: ADMIT Internal Medicine; ATTEND Internal Medicine
PROC: 3E033GC Introduction of Other Therapeutic Substance into Peripheral Vein, Percutaneous Approach (ICD-10-PCS; principal; 2018-11-21)
PROC: 3E013GC Introduction of Other Therapeutic Substance into Subcutaneous Tissue, Percutaneous Approach (ICD-10-PCS; 2018-11-21)
DX: R07.9 Chest pain, unspecified (principal); R77.8 Other specified abnormalities of plasma proteins; E87.6 Hypokalemia; I10 Essential (primary) hypertension; R73.03 Prediabetes
CPT/HCPCS: 36415; 71045-TC-FY; 78452-TC; 80048; 80053; 80061; 82550; 83036; 83721; 83735; 84100; 84484; 85025; 85379; 85610; 85730; 86850; 86900; 86901; 93005; 93010; 93017; 93306-TC; 96372; 96374; 99285-25; A9502; G0378; J1644

== ENCOUNTER 2019-08-09 21:05 | Emergency (ER) | payer MEDICARE, OTHER ==
[2019-08-09 21:15] VITALS: TEMP 98.2; BMI 24.3
--- NOTE | 2019-08-09 22:23 | PDOC ---
History of Present Illness - General Chief Complaint: Chest Pain Stated Complaint: CHEST PAIN & HIGH BP Time Seen by Provider: 08/09/19 22:19 Past History - Past Medical History Allergies/Adverse Reactions: Allergies Allergy/AdvReac Type Severity Reaction Status Date / Time No Known Allergies Allergy Verified 11/21/18 16:00 Home Medications: Ambulatory Orders Atenolol [Tenormin -] 50 mg PO DAILY 30 Days #30 tablet 11/24/18 COPD: No HTN: Yes - Surgical History Cardiac Surgery: Yes Cholecystectomy: Yes - Psycho Social/Smoking Cessation Hx Smoking Status: No Smoking History: Never smoked Have you smoked in the past 12 months: No Number of Cigarettes Smoked Daily: 0 Hx Alcohol Use: No Drug/Substance Use Hx: No Substance Use Type: None Hx Substance Use Treatment: No *Physical Exam - Vital Signs Last Vital Signs Temp Pulse Resp BP Pulse Ox 98.2 F 59 L 18 179/68 H 97 08/09/19 21:11 08/09/19 21:11 08/09/19 21:11 08/09/19 21:11 08/09/19 21:11 ED Treatment Course - LABORATORY CBC & Chemistry Diagram: 08/09/19 23:20 08/09/19 23:20 Medical Decision Making - Medical Decision Making 08/09/19 22:59 HPI: Denies FHx early CAD, smoking, hx CAD/ACS/DC, hx DVT/PE, calf tenderness, recent travel, sick contacts, recent surgery, estrogen or hormone use, malignancy, fever, chills, diaphoresis, fatigue, dizziness, numbness/tingling, weakness, vision changes, shortness of breath, cough, palpitations, leg swelling , abdominal pain, blood in stool, diarrhea, constipation, nausea, vomiting, dysuria, hematuria, confusion. ROS: Constitutional: Negative for chills, fever, fatigue, diaphoresis. HENT: Negative for sore throat, rhinorrhea, congestion. Eyes: Negative for visual disturbance. Respiratory: Negative for shortness of breath, cough, and wheezing. Cardiovascular: Positive for chest pain radiating to upper back. Negative for palpitations, and leg swelling. Gastrointestinal: Negative for abdominal pain, blood in stool, constipation, diarrhea, nausea, and vomiting. Genitourinary: Negative for dysuria, flank pain, and hematuria. Musculoskeletal: Negative for myalgias, back pain, and neck pain. Skin: Negative for rash. Neurological: Positive for headache. Negative for light-headedness, dizziness, vertigo, syncope, weakness, numbness. Psychiatric/Behavioral: Negative for behavioral problems and confusion. PE: Gen: Alert, NAD, comfortable-appearing. HEENT: PERRL, EOMI, MMM, NCAT. No conjunctival pallor. Sclera are non-icteric. CV: Bradycardic, regular rhythm. No murmurs, rubs, or gallops. PULM: No resp distress. CTAB, no wheezes, rales, or rhonchi. ABD: soft, NT/ND, no rebound tenderness or guarding, no CVA tenderness. BACK: No TTP of c/t/l-spine. No step-offs or deformities. MSK: No bony deformities. 2+ pulses in all extremities. NEURO: AAOx3. PERRL. No gross CN deficits. Strength and sensation grossly intact throughout. EXTREMITIES: No cyanosis. No clubbing. No edema. No calf tenderness. PSYCH: Normal mood and thought pattern. SKIN: Warm and dry. Normal capillary refill. No rashes. No jaundice. MDM: 69yo F -baby aspirin -EKG -CBC, CMP, tropx2 -CXR -Dispo: pending w/u 08/10/19 12:10 Labs reviewed. No concerning findings. CXR reviewed. EKG reviewed: Pt's pain resolved completely. Appears comfortable. No complaints at this time. States ready to leave. Informed of recommendation to get 2nd troponin, discussed reasons, and agreed to stay. 08/10/19 02:26 2nd trop sent 08/10/19 03:04 2nd trop negative. Will dc home with PCP and cardio f/u. Return precautions given. Pt understands all dc instructions and all questions were answered. Discharge - Discharge Information Problems reviewed: Yes Clinical Impression/Diagnosis: Chest pain Condition: Improved Disposition: HOME - Admission No - Follow up/Referral Referrals: Mily Mars MD [Primary Care Provider] - - Patient Discharge Instructions Patient Printed Discharge Instructions: DI for Atypical Chest Pain Additional Instructions: You have been seen in the Emergency Department for your chest pain. Your EKG, chest X-ray, and labs, including Troponin (a heart enzyme), show no signs concerning for an emergent condition such as a heart attack or pneumonia. The cause of your symptoms is uncertain at this time, so you will need further evaluation. Follow-up with your asparagus buncher and your primary care doctor within 1 week. Call their offices in the morning to set up appointments. Return to the ED immediately if you experience chest pain, difficulty breathing , dizziness, or any other new or worsening symptom. - Post Discharge Activity
[2019-08-09] MEDS ORDERED: ASPIRIN 81 MG CHEWABLE TABLETS PO ONE (23:05)
--- NOTE | 2019-08-09 23:05 | PDOC ---
Attending Attestation - Resident Resident Name: Zoila Jasso - ED Attending Attestation I have performed the following: I have examined & evaluated the patient, The case was reviewed & discussed with the resident, I agree w/resident's findings & plan, Exceptions are as noted - HPI HPI: 08/09/19 23: 69-year-old male female presented because of mid chest pain that radiated to her back that started this evening. She denies nausea or vomiting or diaphoresis or shortness of breath. 08/09/19 23:05 - Physicial Exam PE: 08/10/19 01:46 wnwd 69 yo female experienced chest discomfort this evening head ncat neck supple lungs cta b/l cvr [id number] abd no rebound,no guarding skin warm and dry no cva tenderness neuro axox3,ambulatory - Medical Decision Making 08/09/19 23:06 This patient was hospitalized earlier this year for chest pain and had an echo and stress test at that time. Her echo that was done November 24, 2018 showed a normal LV function, ejection fraction 65 to 70% EKG this evening 63 bpm first-degree AV block Social history she denies tobacco use Review of systems is negative for nausea vomiting or shortness of breath At home her systolic blood pressure was in the 190s and she took an extra atenolol along with an aspirin 08/10/19 01:5 LABS REVIEWED first trop is negative if her second troponin is negative ,the plan is for her to be discharged
[2019-08-09] MEDS ORDERED: ASPIRIN COATED 81 MG TABLET.EC ONE (23:14)
[2019-08-09 23:30] LABS: BASO % 1.1 % (0-2.0); EOS % 1.4 % (0-4.5); HEMATOCRIT 38.4 % (32.4-45.2); HEMOGLOBIN 12.7 GM/dL (10.7-15.3); LYMPH % 53.1 % (8-40); MCH 28.7 pg (25.7-33.7); MEAN CELL VOLUME 86.9 fl (80-96); MONO % 8.3 % (3.8-10.2); NEUT % 36.1 % (42.8-82.8); RBC 4.42 M/mm3 (3.60-5.2); RDW 14.3 % (11.6-15.6); WHITE BLOOD COUNT 5.8 K/mm3 (4.0-10.0)
[2019-08-09 23:59] LABS: ALK PHOS 74 U/L (45-117); ANION GAP 9 MMOL/L (8-16); BILIRUBIN,TOTAL 0.4 mg/dL (0.2-1); BLOOD UREA NITROGEN 10.9 mg/dL (7-18); CALCIUM 9.2 mg/dL (8.5-10.1); CHLORIDE 99 mmol/L (98-107); CO2 28 mmol/L (21-32); CREATININE 0.5 mg/dL (0.55-1.3); GLUCOSE,RANDOM 93 mg/dL (74-106); SGOT/AST 18 U/L (15-37); SGPT/ALT 39 U/L (13-61); SODIUM 136 mmol/L (136-145); TOT PROT 7.4 g/dl (6.4-8.2)
[2019-08-10 03:26] VITALS: BP 154/73; PULSE 58
--- NOTE | 2019-08-10 10:19 | EKG ---
Test Reason : Blood Pressure : / mmHG Vent. Rate : 063 BPM Atrial Rate : 063 BPM P-R Int : 216 ms QRS Dur : 094 ms QT Int : 404 ms P-R-T Axes : 063 016 039 degrees QTc Int : 413 ms SINUS RHYTHM WITH 1ST DEGREE A-V BLOCK POSSIBLE LEFT ATRIAL ENLARGEMENT BORDERLINE ECG WHEN COMPARED WITH ECG OF 22-NOV-2018 09:11, NO SIGNIFICANT CHANGE WAS FOUND Confirmed by REBECCA ALEXANDER, MARYSOL ([id number]) on 08/10/2019 10:19:05 AM Referred By: Confirmed By:MARYSOL FERNANDEZ MD
== END 2019-08-10 03:27 | disposition home or self-care (01) ==
LOC: JER 21:05
DX: R07.9 Chest pain, unspecified (principal)
CPT/HCPCS: 36415; 71045-TC-FY; 80053; 82550; 84484; 85025; 93005; 93010; 99283-25

== ENCOUNTER 2021-03-08 20:11 | Observation (INO) | payer MEDICARE, OTHER ==
[2021-03-08] MEDS ORDERED: ASPIRIN 81 MG CHEWABLE TABLETS PO ONE (20:34)
[2021-03-08] MEDS ORDERED: FAMOTIDINE 20 MG/50 ML IVPB 20 MG/50 ML MG IVPB ONE ×2 (20:34→20:56)
[2021-03-08 20:46] LABS: BASO % 0.5 % (0-2.0); EOS % 1.4 % (0-4.5); HEMATOCRIT 37.1 % (32.4-45.2); HEMOGLOBIN 12.4 GM/dL (10.7-15.3); LYMPH % 38.4 % (8-40); MCH 29.6 pg (25.7-33.7); MCHC 33.3 g/dl (32.0-36.0); MEAN CELL VOLUME 88.7 fl (80-96); MEAN PLT VOLUME 12.6 fl (7.5-11.1); NEUT % 49.7 % (42.8-82.8); PLATELET COUNT 93 K/MM3 (134-434); RBC 4.19 M/mm3 (3.60-5.2); RDW 14.4 % (11.6-15.6); WHITE BLOOD COUNT 5.9 K/mm3 (4.0-10.0)
[2021-03-08] MEDS ORDERED: ASPIRIN 325 MG ENTERIC COATED TABLET (FP) ONE (20:56)
[2021-03-08 21:00] LABS: INR 0.99 (0.83-1.09)
[2021-03-08 21:02] LABS: ACTIVATED PTT 32.5 SECONDS (25.2-36.5)
[2021-03-08 21:10] LABS: CHLORIDE 107 mmol/L (98-107); SODIUM 139 mmol/L (136-145)
[2021-03-08 21:12] LABS: BLOOD UREA NITROGEN 19.7 mg/dL (7-18); CALCIUM 8.6 mg/dL (8.5-10.1)
[2021-03-08 21:13] LABS: ANION GAP 4 MMOL/L (8-16); CO2 28 mmol/L (21-32); GLUCOSE,RANDOM 92 mg/dL (74-106); MAGNESIUM 2.2 mg/dL (1.8-2.4)
[2021-03-08 21:15] LABS: SGOT/AST 14 U/L (15-37); SGPT/ALT 27 U/L (13-61)
[2021-03-08 21:16] LABS: CREATININE 0.7 mg/dL (0.55-1.3); PHOSPHOROUS 2.8 mg/dL (2.5-4.9)
[2021-03-08 21:17] LABS: BILIRUBIN,TOTAL 0.2 mg/dL (0.2-1); TOT PROT 7.5 g/dl (6.4-8.2)
[2021-03-08 21:18] LABS: ALK PHOS 86 U/L (45-117)
[2021-03-08 21:21] LABS: N-TERMINAL BNP 52.4 pg/ml (5-125)
[2021-03-08] MEDS ORDERED: SODIUM CHLORIDE 0.9% 500 ML INFUS.BAG IV ONE (21:35)
[2021-03-09 01:21] VITALS: BMI 27.1
[2021-03-09 06:42] LABS: BASO % 0.7 % (0-2.0); EOS % 1.8 % (0-4.5); HEMATOCRIT 35.4 % (32.4-45.2); HEMOGLOBIN 12.1 GM/dL (10.7-15.3); LYMPH % 44.9 % (8-40); MCH 30.3 pg (25.7-33.7); MCHC 34.1 g/dl (32.0-36.0); MEAN CELL VOLUME 88.9 fl (80-96); MEAN PLT VOLUME 13.2 fl (7.5-11.1); MONO % 8.9 % (3.8-10.2); NEUT % 43.7 % (42.8-82.8); RBC 3.98 M/mm3 (3.60-5.2); RDW 14.3 % (11.6-15.6); WHITE BLOOD COUNT 5.8 K/mm3 (4.0-10.0)
[2021-03-09 07:05] LABS: ALBUMIN 3.5 g/dl (3.4-5.0); BLOOD UREA NITROGEN 17.4 mg/dL (7-18); CALCIUM 8.1 mg/dL (8.5-10.1); MAGNESIUM 2.1 mg/dL (1.8-2.4)
[2021-03-09 07:08] LABS: CREATININE 0.6 mg/dL (0.55-1.3)
[2021-03-09 07:10] LABS: BILIRUBIN,TOTAL 0.4 mg/dL (0.2-1); TOT PROT 6.8 g/dl (6.4-8.2)
[2021-03-09 09:47] VITALS: BP 137/89; PULSE 65; TEMP 97.8
[2021-03-09] MEDS ORDERED: ATENOLOL 50 MG TABLET (FP) PO SCH (10:00)
[2021-03-09 10:44] LABS: PLATELET COUNT 91 K/MM3 (134-434)
== END 2021-03-09 13:59 | disposition home or self-care (01) ==
LOC: JER 20:11 → JERBED 22:04 → J4S 23:32
PROVIDERS: ADMIT Hospitalist; ATTEND Nurse Practitioner Acute Care
PROC: 3E033GC Introduction of Other Therapeutic Substance into Peripheral Vein, Percutaneous Approach (ICD-10-PCS; principal; 2021-03-08)
PROC: 3E0337Z Introduction of Electrolytic and Water Balance Substance into Peripheral Vein, Percutaneous Approach (ICD-10-PCS; 2021-03-08)
DX: R07.9 Chest pain, unspecified (principal); I10 Essential (primary) hypertension; Z20.822 Contact with and (suspected) exposure to COVID-19; R07.89 Other chest pain; R73.03 Prediabetes; Z29.9 Encounter for prophylactic measures, unspecified
CPT/HCPCS: 36415; 71045-TC-FY; 80053; 82550; 83735; 83880; 84100; 84443; 84484; 85025; 85610; 85730; 93005; 93010; 96361; 96365; 99285-25; C9803; G0378; U0003; U0005

== ENCOUNTER 2022-07-29 20:44 | Observation (INO) | payer MEDICARE, OTHER ==
[2022-07-29 20:50] VITALS: BMI 25.0
[2022-07-29] MEDS ORDERED: ASPIRIN 81 MG CHEWABLE TABLETS PO ONE (21:40)
[2022-07-29] MEDS ORDERED: ASPIRIN 81 MG CHEWABLE TABLETS ONE (21:54)
[2022-07-29 22:34] LABS: HEMATOCRIT 37.8 % (32.4-45.2); HEMOGLOBIN 12.7 GM/dL (10.7-15.3); MCH 29.3 pg (25.7-33.7); MCHC 33.6 g/dl (32.0-36.0)
[2022-07-29 22:46] LABS: BASO % 0.8 % (0-2.0); LYMPH % 49.6 % (8-40); MEAN CELL VOLUME 87.2 fl (80-96); MEAN PLT VOLUME 12.3 fl (7.5-11.1); MONO % 8.9 % (3.8-10.2); NEUT % 38.7 % (42.8-82.8); PLATELET COUNT 90 10^3/uL (134-434); RBC 4.33 M/mm3 (3.60-5.2); RDW 14.5 % (11.6-15.6); WHITE BLOOD COUNT 4.7 K/mm3 (4.0-10.0)
[2022-07-29 22:50] LABS: CALCIUM 9.3 mg/dL (8.5-10.1)
[2022-07-29 22:51] LABS: ALBUMIN 3.9 g/dl (3.4-5.0); BLOOD UREA NITROGEN 16.1 mg/dL (7-18)
[2022-07-29 22:54] LABS: CREATININE 0.6 mg/dL (0.55-1.3)
[2022-07-29 22:55] LABS: BILIRUBIN,TOTAL 0.2 mg/dL (0.2-1)
[2022-07-29 22:56] LABS: TOT PROT 7.5 g/dl (6.4-8.2)
[2022-07-29 23:42] LABS: PLATELET ESTIMATE DECREASED
[2022-07-30 07:20] VITALS: BP 149/71; PULSE 64; RESP 18; TEMP 97.2
[2022-07-30 09:44] LABS: BASO % 0.7 % (0-2.0); EOS % 2.1 % (0-4.5); HEMOGLOBIN 12.8 GM/dL (10.7-15.3); MCH 29.3 pg (25.7-33.7); MCHC 33.6 g/dl (32.0-36.0); MEAN CELL VOLUME 87.3 fl (80-96); MEAN PLT VOLUME 12.4 fl (7.5-11.1); MONO % 10.4 % (3.8-10.2); NEUT % 41.8 % (42.8-82.8); PLATELET COUNT 95 10^3/uL (134-434); RBC 4.35 M/mm3 (3.60-5.2)
[2022-07-30] MEDS ORDERED: VALSARTAN 80 MG TABLET ONE (09:55)
[2022-07-30] MEDS ORDERED: HYDROCHLOROTHIAZIDE 25 MG TABLET (FP) ONE (09:55)
[2022-07-30] MEDS ORDERED: PANTOPRAZOLE 40 MG TABLET PO ONE (09:55)
[2022-07-30] MEDS ORDERED: VALSARTAN 80 MG TABLET PO SCH (10:00)
[2022-07-30] MEDS ORDERED: PANTOPRAZOLE 40 MG TABLET PO SCH (10:00)
[2022-07-30] MEDS ORDERED: ENOXAPARIN NA (PORCINE) 40 MG/0.4 ML DISP.SYRIN SQ SCH (10:00)
[2022-07-30] MEDS ORDERED: HYDROCHLOROTHIAZIDE 12.5 MG CAPSULE (FP) PO SCH (10:00)
[2022-07-30 10:10] LABS: CALCIUM 9.7 mg/dL (8.5-10.1)
[2022-07-30 10:11] LABS: BLOOD UREA NITROGEN 10.9 mg/dL (7-18); MAGNESIUM 2.2 mg/dL (1.8-2.4)
[2022-07-30 10:14] LABS: CREATININE 0.5 mg/dL (0.55-1.3); PHOSPHOROUS 3.8 mg/dL (2.5-4.9)
[2022-07-30 10:15] LABS: BILIRUBIN,TOTAL 0.4 mg/dL (0.2-1); TOT PROT 7.4 g/dl (6.4-8.2)
== END 2022-07-30 15:42 | disposition home or self-care (01) ==
LOC: JER 20:44 → JERBED 07-30 00:15
PROVIDERS: ADMIT Internal Medicine; ATTEND Internal Medicine
DX: I10 Essential (primary) hypertension (principal); E11.9 Type 2 diabetes mellitus without complications; R06.02 Shortness of breath; R07.89 Other chest pain
CPT/HCPCS: 36415; 71046-TC-FY; 80053; 83735; 84100; 84484; 85025; 85379; 93005; 93010; 99285-25; C9803-CS; G0378; U0003; U0005

== ENCOUNTER 2023-03-29 23:55 | Inpatient (IN) | payer MEDICARE, OTHER ==
[2023-03-30] MEDS ORDERED: SODIUM CHLORIDE 0.9% 500 ML INFUS.BAG IV ONE (00:34)
[2023-03-30] MEDS ORDERED: ACETAMINOPHEN 1000 MG/100 ML BAG IVPB ONE (00:34)
[2023-03-30] MEDS ORDERED: ACETAMINOPHEN INJECTION 100 ML IVPB ONE (00:54)
[2023-03-30 01:58] LABS: MCH 28.9 pg (25.7-33.7); MCHC 34.4 g/dl (32.0-36.0); MEAN PLT VOLUME 12.7 fl (7.5-11.1); PLATELET COUNT 93 10^3/uL (134-434); RBC 4.17 M/mm3 (3.60-5.2); WHITE BLOOD COUNT 7.6 K/mm3 (4.0-10.0)
[2023-03-30 01:59] LABS: VENOUS BASE EXCESS 1.7 mmol/L (-2-2); VENOUS O2 SATURATION 77.9 % (70-80); VENOUS PCO2 38.8 mmHg (38-52); VENOUS PH 7.441 (7.310-7.410)
[2023-03-30 02:06] LABS: INR 1.22 (0.83-1.09); PROTHROMBIN TIME (PATIENT) 14.1 SEC (9.7-13.0)
[2023-03-30 02:09] LABS: ACTIVATED PTT 28.8 SECONDS (25.2-36.5)
[2023-03-30 02:16] LABS: CHLORIDE 99 mmol/L (98-107); POTASSIUM 3.2 mmol/L (3.5-5.1); SODIUM 133 mmol/L (136-145)
[2023-03-30 02:18] LABS: CALCIUM 9.2 mg/dL (8.5-10.1)
[2023-03-30 02:19] LABS: ALBUMIN 3.7 g/dl (3.4-5.0); ANION GAP 7 MMOL/L (8-16); BLOOD UREA NITROGEN 18.9 mg/dL (7-18); CO2 26 mmol/L (21-32); GLUCOSE,RANDOM 102 mg/dL (74-106)
[2023-03-30 02:21] LABS: SGPT/ALT 22 U/L (13-61)
[2023-03-30 02:22] LABS: CREATININE 0.7 mg/dL (0.55-1.3); SGOT/AST 12 U/L (15-37)
[2023-03-30 02:23] LABS: BILIRUBIN,TOTAL 0.5 mg/dL (0.2-1); TOT PROT 7.5 g/dl (6.4-8.2)
[2023-03-30 02:24] LABS: ALK PHOS 61 U/L (45-117)
[2023-03-30 03:12] LABS: EPI CELLS 4 /uL (0-25.1); HYALINE CASTS 0 /uL (0-3.1); PH,URINE 5.5 (5.0-8.0); URINE APPEARANCE CLOUDY; URINE BILIRUBIN NEGATIVE (NEGATIVE); URINE COLOR YELLOW; URINE GLUCOSE (UA) NEGATIVE (NEGATIVE); URINE KETONE NEGATIVE (NEGATIVE); URINE LEUK ESTERASE 2+ (NEGATIVE); URINE NITRITE POSITIVE (NEGATIVE); URINE PROTEIN 1+ (NEGATIVE); URINE RBC 44 /uL (0-23.9); URINE UROBILINOGEN 0.2 mg/dL (0.2-1.0); URINE WBC 1335 /uL (0-25.8)
[2023-03-30 03:16] LABS: URINE BACTERIA 683.9 /uL (0-1359)
[2023-03-30 03:27] LABS: ANISOCYTOSIS 2+; MACROCYTOSIS 0
[2023-03-30] MEDS ORDERED: CEFTRIAXONE 1,000 MG in DEXTROSE 5%-WATER - 50 ML IVPB ONE (03:27)
[2023-03-30] MEDS ORDERED: CEFTRIAXONE 1 GM/50 ML BAG ONE ×2 (03:37→08:45)
[2023-03-30] MEDS ORDERED: POTASSIUM CHLORIDE ORAL LIQUID 20 MEQ/15 ML PO ONE (03:38)
[2023-03-30] MEDS ORDERED: POTASSIUM CHLORIDE ORAL LIQUID 20 MEQ/15 ML ONE (03:41)
[2023-03-30] MEDS ORDERED: ACETAMINOPHEN 325 MG TABLET (FP) PO PRN (04:36)
[2023-03-30] MEDS: SODIUM CHLORIDE 1,000 ML IV SCH (06:00)
[2023-03-30 07:08] LABS: BASO % 0.2 % (0-2.0); HEMOGLOBIN 11.3 GM/dL (10.7-15.3); LYMPH % 5.3 % (8-40); MCH 29.4 pg (25.7-33.7); MCHC 34.2 g/dl (32.0-36.0); MEAN CELL VOLUME 85.9 fl (80-96); MEAN PLT VOLUME 12.5 fl (7.5-11.1); MONO % 4.7 % (3.8-10.2); NEUT % 89.8 % (42.8-82.8); PLATELET COUNT 88 10^3/uL (134-434); RBC 3.84 M/mm3 (3.60-5.2); RDW 14.3 % (11.6-15.6); WHITE BLOOD COUNT 8.3 K/mm3 (4.0-10.0)
[2023-03-30 07:24] LABS: POTASSIUM 4.2 mmol/L (3.5-5.1)
[2023-03-30 07:26] LABS: CALCIUM 8.6 mg/dL (8.5-10.1)
[2023-03-30 07:27] LABS: ALBUMIN 3.3 g/dl (3.4-5.0); BLOOD UREA NITROGEN 14.7 mg/dL (7-18); MAGNESIUM 1.7 mg/dL (1.8-2.4)
[2023-03-30 07:30] LABS: CREATININE 0.6 mg/dL (0.55-1.3); PHOSPHOROUS 3.3 mg/dL (2.5-4.9)
[2023-03-30 07:31] LABS: BILIRUBIN,TOTAL 0.4 mg/dL (0.2-1)
[2023-03-30 07:32] LABS: TOT PROT 6.8 g/dl (6.4-8.2)
[2023-03-30] MEDS ORDERED: VALSARTAN 80 MG TABLET ONE (08:44)
[2023-03-30 09:41] VITALS: BMI 26.5
[2023-03-30] MEDS ORDERED: VALSARTAN 160 MG TABLET PO SCH (10:00)
[2023-03-30] MEDS ORDERED: ENOXAPARIN NA (PORCINE) 40 MG/0.4 ML DISP.SYRIN SQ SCH (10:00)
[2023-03-30] MEDS ORDERED: CEFTRIAXONE 1 GM in DEXTROSE 5%-WATER - 50 ML IVPB SCH (10:00)
[2023-03-30] MEDS ORDERED: CHLORTHALIDONE 25 MG TABLET PO SCH (10:00)
[2023-03-30] MEDS: POLYETHYLENE GLYCOL (HEALTHYLAX) 3350 17 GM PACKET PO SCH ×2 (11:51→22:08)
[2023-03-30] MEDS: VALSARTAN 160 MG TABLET PO SCH (11:51)
[2023-03-30] MEDS: CHLORTHALIDONE 25 MG TABLET PO SCH (12:05)
[2023-03-30] MEDS: CEFEPIME 1 GM in DEXTROSE 5%-WATER 100 ML IVPB SCH ×2 (12:18→17:36)
[2023-03-30] MEDS: DOCUSATE SODIUM 100 MG CAPSULE (FP) PO SCH ×2 (14:50→22:08)
[2023-03-31] MEDS: CEFEPIME 1 GM in DEXTROSE 5%-WATER 100 ML IVPB SCH (01:38)
[2023-03-31] MEDS ORDERED: methylPREDNISolone NA SUCC 125 MG/2 ML VIAL IVPUSH ONE (02:51)
[2023-03-31] MEDS: SODIUM CHLORIDE 1,000 ML IV SCH ×3 (03:15→17:47)
[2023-03-31] MEDS: DOCUSATE SODIUM 100 MG CAPSULE (FP) PO SCH ×4 (05:56→22:40)
[2023-03-31 07:44] LABS: BASO % 0.3 % (0-2.0); LYMPH % 10.6 % (8-40); MCH 29.2 pg (25.7-33.7); MCHC 34.3 g/dl (32.0-36.0); MEAN CELL VOLUME 85.2 fl (80-96); MEAN PLT VOLUME 12.7 fl (7.5-11.1); MONO % 4.6 % (3.8-10.2); NEUT % 84.5 % (42.8-82.8); PLATELET COUNT 75 10^3/uL (134-434); RBC 3.75 M/mm3 (3.60-5.2); RDW 14.1 % (11.6-15.6); WHITE BLOOD COUNT 4.9 K/mm3 (4.0-10.0)
[2023-03-31 07:58] LABS: POTASSIUM 3.6 mmol/L (3.5-5.1)
[2023-03-31 08:03] LABS: ALBUMIN 3.2 g/dl (3.4-5.0); BLOOD UREA NITROGEN 7.7 mg/dL (7-18); CALCIUM 8.4 mg/dL (8.5-10.1); MAGNESIUM 2.3 mg/dL (1.8-2.4)
[2023-03-31 08:06] LABS: CREATININE 0.4 mg/dL (0.55-1.3)
[2023-03-31 08:08] LABS: BILIRUBIN,TOTAL 0.6 mg/dL (0.2-1); TOT PROT 6.8 g/dl (6.4-8.2)
[2023-03-31] MEDS: POLYETHYLENE GLYCOL (HEALTHYLAX) 3350 17 GM PACKET PO SCH ×4 (10:11→22:40)
[2023-03-31] MEDS: VALSARTAN 160 MG TABLET PO SCH (10:13)
[2023-03-31] MEDS: CHLORTHALIDONE 25 MG TABLET PO SCH (10:13)
[2023-03-31] MEDS ORDERED: diphenhydrAMINE HCL 25 MG CAPSULE (FP) PO PRN (10:13)
[2023-03-31] MEDS: predniSONE 20 MG TABLET (UD) PO SCH (11:32)
[2023-03-31] MEDS ORDERED: AZTREONAM 1 GM VIAL (RESTRICTED TO ID) ONE (12:02)
[2023-03-31] MEDS: AZTREONAM 1 GM in DEXTROSE 5%-WATER - 50 ML IVPB SCH ×2 (12:42→18:55)
[2023-04-01] MEDS: AZTREONAM 1 GM in DEXTROSE 5%-WATER - 50 ML IVPB SCH ×3 (02:38→17:31)
[2023-04-01] MEDS: SODIUM CHLORIDE 1,000 ML IV SCH ×3 (05:28→21:28)
[2023-04-01] MEDS: DOCUSATE SODIUM 100 MG CAPSULE (FP) PO SCH ×3 (05:28→21:27)
[2023-04-01 07:27] LABS: BASO % 0.3 % (0-2.0); EOS % 0.4 % (0-4.5); HEMATOCRIT 29.2 % (32.4-45.2); LYMPH % 23.2 % (8-40); MCH 29.3 pg (25.7-33.7); MCHC 34.2 g/dl (32.0-36.0); MEAN CELL VOLUME 85.7 fl (80-96); MEAN PLT VOLUME 12.9 fl (7.5-11.1); MONO % 9.9 % (3.8-10.2); NEUT % 66.2 % (42.8-82.8); PLATELET COUNT 78 10^3/uL (134-434); RDW 14.1 % (11.6-15.6); WHITE BLOOD COUNT 7.5 K/mm3 (4.0-10.0)
[2023-04-01 07:28] LABS: POTASSIUM 3.7 mmol/L (3.5-5.1)
[2023-04-01 07:32] LABS: CALCIUM 8.5 mg/dL (8.5-10.1)
[2023-04-01 07:33] LABS: MAGNESIUM 2.5 mg/dL (1.8-2.4)
[2023-04-01 07:34] LABS: TOT PROT 6.4 g/dl (6.4-8.2)
[2023-04-01 07:36] LABS: CREATININE 0.3 mg/dL (0.55-1.3)
[2023-04-01 07:38] LABS: BILIRUBIN,TOTAL 0.2 mg/dL (0.2-1)
[2023-04-01] MEDS: CHLORTHALIDONE 25 MG TABLET PO SCH (09:58)
[2023-04-01] MEDS: VALSARTAN 160 MG TABLET PO SCH (10:00)
[2023-04-01] MEDS: predniSONE 20 MG TABLET (UD) PO SCH (10:00)
[2023-04-01] MEDS: POLYETHYLENE GLYCOL (HEALTHYLAX) 3350 17 GM PACKET PO SCH ×2 (10:00→21:27)
[2023-04-02] MEDS: AZTREONAM 1 GM in DEXTROSE 5%-WATER - 50 ML IVPB SCH ×2 (02:22→10:20)
[2023-04-02] MEDS: DOCUSATE SODIUM 100 MG CAPSULE (FP) PO SCH ×2 (05:51→13:43)
[2023-04-02 07:44] LABS: BASO % 0.3 % (0-2.0); EOS % 0.5 % (0-4.5); HEMOGLOBIN 10.4 GM/dL (10.7-15.3); LYMPH % 41.6 % (8-40); MCH 29.4 pg (25.7-33.7); MCHC 34.6 g/dl (32.0-36.0); MEAN PLT VOLUME 13.1 fl (7.5-11.1); MONO % 8.1 % (3.8-10.2); NEUT % 49.5 % (42.8-82.8); PLATELET COUNT 106 10^3/uL (134-434); RBC 3.53 M/mm3 (3.60-5.2); RDW 13.8 % (11.6-15.6); WHITE BLOOD COUNT 7.7 K/mm3 (4.0-10.0)
[2023-04-02 07:55] LABS: POTASSIUM 3.7 mmol/L (3.5-5.1)
[2023-04-02 07:58] LABS: ALBUMIN 3.3 g/dl (3.4-5.0); MAGNESIUM 2.1 mg/dL (1.8-2.4)
[2023-04-02 07:59] LABS: CALCIUM 8.9 mg/dL (8.5-10.1)
[2023-04-02 08:01] LABS: CREATININE 0.5 mg/dL (0.55-1.3)
[2023-04-02 08:03] LABS: BILIRUBIN,TOTAL 0.5 mg/dL (0.2-1); TOT PROT 6.9 g/dl (6.4-8.2)
[2023-04-02] MEDS: SODIUM CHLORIDE 1,000 ML IV SCH (10:17)
[2023-04-02] MEDS: predniSONE 20 MG TABLET (UD) PO SCH (10:19)
[2023-04-02] MEDS: POLYETHYLENE GLYCOL (HEALTHYLAX) 3350 17 GM PACKET PO SCH ×2 (10:20→10:28)
[2023-04-02] MEDS: VALSARTAN 160 MG TABLET PO SCH (10:20)
[2023-04-02] MEDS: CHLORTHALIDONE 25 MG TABLET PO SCH (10:20)
[2023-04-02 11:10] VITALS: RESP 20
[2023-04-02 13:54] VITALS: BP 125/70; PULSE 63; TEMP 98.5
== END 2023-04-02 14:45 | disposition home or self-care (01) | DRG 690 ==
LOC: JER 23:55 → JERBED 03-30 03:28 → J7W 03-30 09:24
PROVIDERS: ADMIT Internal Medicine; ATTEND Internal Medicine
DX: N39.0 Urinary tract infection, site not specified (principal); R78.81 Bacteremia; B96.20 Unspecified Escherichia coli [E. coli] as the cause of diseases classified elsewhere; D69.6 Thrombocytopenia, unspecified; E87.6 Hypokalemia; I10 Essential (primary) hypertension; R22.0 Localized swelling, mass and lump, head; T36.1X5A Adverse effect of cephalosporins and other beta-lactam antibiotics, initial encounter; K59.00 Constipation, unspecified; D64.9 Anemia, unspecified
CPT/HCPCS: 0241U-QW; 36415; 71045-TC-FY; 74176-TC; 80053; 81003; 82550; 82553; 82607; 82746; 82803; 83605; 83735; 84100; 84484; 85025; 85032; 85610; 85730; 86850; 86900; 86901; 87040; 87086; 87186; 93005; 93010; 99285-25

== ENCOUNTER 2023-07-25 04:35 | Day surgery (SDC) | payer MEDICARE, OTHER ==
[2023-07-23 10:25] VITALS: BMI 25.7
[2023-07-25 10:05] VITALS: TEMP 97.4
[2023-07-25 10:30] VITALS: BP 116/53; PULSE 54; RESP 16
== END 2023-07-25 11:10 | disposition home or self-care (01) ==
LOC: JASU-ENDO 04:35
PROVIDERS: ATTEND Internal Medicine Gastroenterology
PROC: 0DBL8ZX Excision of Transverse Colon, Via Natural or Artificial Opening Endoscopic, Diagnostic (ICD-10-PCS; principal; 2023-07-25 09:15)
DX: Z12.11 Encounter for screening for malignant neoplasm of colon (principal); K63.5 Polyp of colon; K64.8 Other hemorrhoids; I10 Essential (primary) hypertension; R73.03 Prediabetes
CPT/HCPCS: 88305-TC

== ENCOUNTER 2024-02-02 21:04 | Emergency (ER) | payer OTHER ==
[2024-02-02 21:14] VITALS: TEMP 98.2; BMI 24.6
[2024-02-02 21:56] LABS: BASO % 0.8 % (0-2.0); EOS % 1.4 % (0-4.5); HEMATOCRIT 36.7 % (32.4-45.2); HEMOGLOBIN 11.8 GM/dL (10.7-15.3); LYMPH % 53.1 % (8-40); MCH 28.6 pg (25.7-33.7); MCHC 32.2 g/dl (32.0-36.0); MEAN CELL VOLUME 88.6 fl (80-96); MEAN PLT VOLUME 11.4 fl (7.5-11.1); MONO % 10.9 % (3.8-10.2); NEUT % 33.8 % (42.8-82.8); PLATELET COUNT 109 10^3/uL (134-434); RBC 4.15 M/mm3 (3.60-5.2); RDW 14.2 % (11.6-15.6); WHITE BLOOD COUNT 5.1 K/mm3 (4.0-10.0)
[2024-02-02 22:20] LABS: POTASSIUM 4.1 mmol/L (3.5-5.1)
[2024-02-02 22:21] LABS: CALCIUM 9.4 mg/dL (8.5-10.1)
[2024-02-02 22:22] LABS: ALBUMIN 3.6 g/dl (3.4-5.0); BLOOD UREA NITROGEN 11.8 mg/dL (7-18); MAGNESIUM 2.1 mg/dL (1.8-2.4)
[2024-02-02 22:25] LABS: CREATININE 0.5 mg/dL (0.55-1.3)
[2024-02-02 22:27] LABS: BILIRUBIN,TOTAL 0.3 mg/dL (0.2-1)
[2024-02-03 00:05] VITALS: BP 154/66; PULSE 73; RESP 16
== END 2024-02-03 00:05 | disposition home or self-care (01) ==
LOC: JER 21:04
DX: R07.2 Precordial pain (principal); I10 Essential (primary) hypertension
CPT/HCPCS: 36415; 71045-TC-FY; 80053; 83735; 83880; 84484; 85025; 93005; 93010; 99285-25

== ENCOUNTER 2025-09-03 12:36 | Emergency (ER) | payer OTHER ==
[2025-09-03 12:45] VITALS: BP 148/76; PULSE 64; RESP 20; TEMP 97.5; BMI 29.2
[2025-09-03] MEDS ORDERED: ACETAMINOPHEN 500 MG TABLET (FP) ONE (14:27)
[2025-09-03] MEDS ORDERED: LIDOCAINE 4% PATCH TP ONE (14:27)
[2025-09-03] MEDS ORDERED: IBUPROFEN 600 MG TABLET (FP) PO ONE (14:27)
[2025-09-03 14:44] LABS: URINE APPEARANCE Clear; URINE BILIRUBIN Negative (NEGATIVE); URINE COLOR Yellow; URINE GLUCOSE (UA) Negative (NEGATIVE); URINE KETONE Negative (NEGATIVE); URINE LEUK ESTERASE Negative (NEGATIVE); URINE NITRITE Negative (NEGATIVE); URINE PROTEIN Negative (NEGATIVE); URINE UROBILINOGEN 0.2 mg/dL (0.2-1.0)
[2025-09-03] MEDS: LIDOCAINE 5% TOPICAL PATCH TP ONE (14:46)
[2025-09-03] MEDS: IBUPROFEN 600 MG TABLET (FP) PO ONE (14:46)
[2025-09-03] MEDS: ACETAMINOPHEN 500 MG TABLET (FP) PO ONE (14:46)
[2025-09-03] MEDS ORDERED: METHOCARBAMOL 500 MG TABLET ONE (15:20)
[2025-09-03] MEDS: METHOCARBAMOL 500 MG TABLET PO ONE (15:28)
[2025-09-03] MEDS ORDERED: LIDOCAINE PATCH REMOVAL MC ONE (22:00)
== END 2025-09-03 15:44 | disposition home or self-care (01) ==
LOC: JERFT 12:36
DX: M54.50 Low back pain, unspecified (principal); G89.29 Other chronic pain
CPT/HCPCS: 72100-TC-FY; 72170-TC-FY; 81003; 87086; 99284-25